=== PATIENT | female | born 1995 | race African-American/Black ===

== ENCOUNTER 2019-09-11 17:19 | Emergency (ER) | payer MEDICAID ==
[~2019-09-11] VITALS: Ht 172.7 cm; Wt 88.0 kg
[~2019-09-11 17:19] MED LIST: ARIP20TA5 PO; FLUT9.9S NAS; LAMO150T2 PO; LORA0.5T PO; MELA1TAB22 PO; MIRT30TA4 PO; RANI150C PO; SODI30SP NAS; ZOLP-413 PO
[2019-09-11 17:22] VITALS: BP 146/98
--- NOTE | 2019-09-11 20:03 | NUR ---
PT CALLED X 3 FROM 1850 TO 1999 WITH NO ANSWER
== END 2019-09-11 20:06 | disposition left against medical advice (07) ==
LOC: ED 20:00
DX: F15.10 Other stimulant abuse, uncomplicated (principal); Z53.21 Procedure and treatment not carried out due to patient leaving prior to being seen by health care provider

== ENCOUNTER 2019-10-04 16:21 | Emergency (ER) | payer MEDICAID ==
[~2019-10-04] VITALS: Ht 172.7 cm; Wt 90.6 kg
[2019-10-04] MEDS ORDERED: ACETAMINOPHEN 500 MG TABLET ONE (17:35)
[2019-10-04] MEDS ORDERED: TRAZADONE (17:43)
--- NOTE | 2019-10-04 17:43 | NUR ---
PT CAME IN CO OF HEADACHE FOR THE PAST 4 HOURS. CALL LIGHT WITHIN REACH
[2019-10-04 17:52] LABS: BASOPHILS # (AUTO) 0.03 x10^3/uL (0-0.1); BASOPHILS % (AUTO) 0 % (0-1); EOSINOPHILS # (AUTO) 0.01 x10^3/uL (0-0.4); EOSINOPHILS % (AUTO) 0 % (1-7); LYMPHOCYTES # (AUTO) 2.14 x10^3/uL (1-3.4); LYMPHOCYTES % (AUTO) 35 % (22-44); MD NO; MEAN CORPUSCULAR HEMOGLOBIN 28.6 pg (27.0-34.8); MEAN CORPUSCULAR HGB CONC 33.2 g/dL (32.4-35.8); MEAN CORPUSCULAR VOLUME 86.1 fL (80-100); MEAN PLATELET VOLUME 7.5 fL (7.4-10.4); MONOCYTES # (AUTO) 0.53 x10^3/uL (0.2-0.8); MONOCYTES % (AUTO) 9 % (2-9); NEUTROPHILS # (AUTO) 3.47 x10^3/uL (1.8-6.8); NEUTROPHILS % (AUTO) 56 % (42-75); PLATELET COUNT 304 x10^3/uL (130-400); RED BLOOD COUNT 4.59 x10^6/uL (3.82-5.3); RED CELL DISTRIBUTION WIDTH 14.3 % (9.6-15.2)
[2019-10-04] MEDS ORDERED: ACETAMINOPHEN 500 MG TABLET PO ONE (18:00)
[2019-10-04 18:04] LABS: ALANINE AMINOTRANSFERASE 21 U/L (12-78); ALBUMIN 4.1 g/dL (3.4-5.0); ANION GAP 6 mmol/L (5-15); CALCIUM 9.5 mg/dL (8.5-10.1); CHLORIDE 109 mmol/L (98-107); CREATININE 0.85 mg/dL (0.55-1.02)
[2019-10-04 18:06] LABS: ALKALINE PHOSPHATASE 96 U/L (45-117); BILIRUBIN,TOTAL 0.3 mg/dL (0.2-1.0); TOTAL PROTEIN 7.3 g/dL (6.4-8.2)
[2019-10-04 18:30] LABS: HCG UR SG 1.003 (1.003-1.030)
[2019-10-04 18:39] LABS: CULTURE INDICATED? YES; MICROSCOPIC AUTO
[2019-10-04 18:59] VITALS: BP 132/94
--- NOTE | 2019-10-04 18:59 | NUR ---
PT IS WATCHING TV. NO NEEDS AT THIS TIME
== END 2019-10-04 19:20 | disposition home or self-care (01) ==
LOC: ED 17:12
DX: J02.8 Acute pharyngitis due to other specified organisms (principal); R51 Headache; B97.89 Other viral agents as the cause of diseases classified elsewhere; I10 Essential (primary) hypertension
CPT/HCPCS: 36415; 71045; 80053; 81001; 81025; 83690; 85025; 87086; 99284

== ENCOUNTER 2019-10-15 13:42 | Emergency (ER) | payer MEDICAID ==
[~2019-10-15] VITALS: Ht 172.7 cm; Wt 86.2 kg
[~2019-10-15 13:42] MED LIST changes: +TRAZADONE
[2019-10-15 13:44] VITALS: BP 150/83
[2019-10-15] MEDS ORDERED: ACETAMINOPHEN 500 MG TABLET PO ONE (14:30)
[2019-10-15] MEDS ORDERED: ACETAMINOPHEN 500 MG TABLET ONE (14:44)
== END 2019-10-15 15:23 | disposition home or self-care (01) ==
LOC: ED 15:14
DX: G43.009 Migraine without aura, not intractable, without status migrainosus (principal); R11.0 Nausea; I10 Essential (primary) hypertension
CPT/HCPCS: 70450; 82962; 99284

== ENCOUNTER 2020-03-13 03:05 | Emergency (ER) | payer MEDICAID ==
[~2020-03-13] VITALS: Ht 172.7 cm; Wt 83.9 kg
[~2020-03-13 03:05] MED LIST changes: -LAMO150T2 PO; +LAMO150T4 PO
[2020-03-13 03:12] VITALS: BP 169/73
--- NOTE | 2020-03-13 03:32 | NUR ---
Pt c/o pain with urination and lower abd pain x2 days. UA collected and sent. Call light in reach. Pt denies further needs at this time.
[2020-03-13 03:48] LABS: HCG UR SG 1.024 (1.003-1.030)
--- NOTE | 2020-03-13 03:55 | NUR ---
Report to Ivone BLEDSOE.
[2020-03-13 04:01] LABS: MICROSCOPIC INDICATED
== END 2020-03-13 04:56 | disposition home or self-care (01) ==
LOC: ED 03:58
DX: N30.01 Acute cystitis with hematuria (principal); R30.0 Dysuria; R10.30 Lower abdominal pain, unspecified
CPT/HCPCS: 81001; 81025; 87077; 87086; 87186; 99283

== ENCOUNTER 2020-04-11 23:34 | Emergency (ER) | payer MEDICAID ==
[~2020-04-11] VITALS: Ht 172.7 cm; Wt 82.0 kg
[2020-04-11 23:48] VITALS: BP 163/85
--- NOTE | 2020-04-12 00:01 | NUR ---
Urine sample collected and walked to lab at this time
[2020-04-12] MEDS ORDERED: PHENAZOPYRIDINE 200 MG TABLET PO ONE (00:30)
[2020-04-12 00:36] LABS: HCG UR SG 1.028 (1.003-1.030)
[2020-04-12 00:37] LABS: MICROSCOPIC INDICATED
[2020-04-12] MEDS ORDERED: PHENAZOPYRIDINE 200 MG TABLET ONE (00:48)
[2020-04-12] MEDS ORDERED: FOSFOMYCIN 3 GM PACKET ONE (01:09)
[2020-04-12] MEDS ORDERED: FOSFOMYCIN 3 GM PACKET PO ONE (01:30)
== END 2020-04-12 01:22 | disposition home or self-care (01) ==
LOC: ED 04-12 01:18
DX: N30.01 Acute cystitis with hematuria (principal)
CPT/HCPCS: 81001; 81025; 87077; 87086; 87186; 99283

== ENCOUNTER 2020-05-02 17:20 | Emergency (ER) | payer MEDICAID ==
[~2020-05-02] VITALS: Ht 172.7 cm; Wt 81.0 kg
[2020-05-02] MEDS ORDERED: ACETAMINOPHEN 500 MG TABLET PO ONE (18:00)
[2020-05-02] MEDS ORDERED: LORazepam 1MG TABLET PO ONE (18:00)
[2020-05-02] MEDS ORDERED: ACETAMINOPHEN 500 MG TABLET ONE (18:14)
[2020-05-02] MEDS ORDERED: LORazepam 1MG TABLET ONE (18:14)
--- NOTE | 2020-05-02 18:27 | NUR ---
Pt presents to ED with c/o 5/10 headache and auditory hallucinations beginning 1 hour ago. Pt denies auditory hallucinations at this time. Pt denies SI or HI. Provided medications per EMAR. Pt appreciative. NADN. No other needs expressed at this time.
[2020-05-02 18:28] VITALS: BP 124/84
== END 2020-05-02 19:05 | disposition home or self-care (01) ==
LOC: ED 18:47
DX: R51 Headache (principal); Z76.0 Encounter for issue of repeat prescription; R44.0 Auditory hallucinations; R42 Dizziness and giddiness
CPT/HCPCS: 99281; 99283

== ENCOUNTER 2020-05-13 15:33 | Emergency (ER) | payer MEDICAID ==
[~2020-05-13] VITALS: Ht 172.7 cm; Wt 81.7 kg
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
[2020-05-13] MEDS ORDERED: PALIPERIDONE PALMITATE 234 MG/1.5 ML IM ONE (16:30)
--- NOTE | 2020-05-13 16:32 | NUR ---
APARNA WITH SENTHIL WITH PSYCH, NOT TO GIVE INVEGA AT THIS TIME. PATIENT WILL BE ON A HOLD PLACED BY SENTHIL
--- NOTE | 2020-05-13 16:49 | NUR ---
UA COLLECTED AND WALKED TO LAB
[2020-05-13 16:54] LABS: BASOPHILS # (AUTO) 0.05 x10^3/uL (0-0.1); BASOPHILS % (AUTO) 1 % (0-1); EOSINOPHILS # (AUTO) 0.02 x10^3/uL (0-0.4); EOSINOPHILS % (AUTO) 1 % (1-7); LYMPHOCYTES # (AUTO) 1.21 x10^3/uL (1-3.4); LYMPHOCYTES % (AUTO) 24 % (22-44); MD NO; MEAN CORPUSCULAR HEMOGLOBIN 28.2 pg (27.0-34.8); MEAN CORPUSCULAR HGB CONC 32.8 g/dL (32.4-35.8); MEAN PLATELET VOLUME 7.2 fL (7.4-10.4); MONOCYTES # (AUTO) 0.43 x10^3/uL (0.2-0.8); MONOCYTES % (AUTO) 9 % (2-9); NEUTROPHILS # (AUTO) 3.29 x10^3/uL (1.8-6.8); NEUTROPHILS % (AUTO) 66 % (42-75); PLATELET COUNT 332 x10^3/uL (130-400); RED BLOOD COUNT 4.49 x10^6/uL (3.82-5.3); RED CELL DISTRIBUTION WIDTH 14.1 % (9.6-15.2)
[2020-05-13 16:59] LABS: HCG UR SG 1.031 (1.003-1.030); MICROSCOPIC AUTO
[2020-05-13] MEDS ORDERED: LORazepam 1MG TABLET PO ONE (17:00)
[2020-05-13] MEDS ORDERED: LORazepam 1MG TABLET ONE (17:00)
[2020-05-13 17:06] LABS: ALBUMIN 3.7 g/dL (3.4-5.0); ANION GAP 7 mmol/L (5-15); CALCIUM 8.4 mg/dL (8.5-10.1); CHLORIDE 111 mmol/L (98-107)
--- NOTE | 2020-05-13 17:09 | NUR ---
PATIENT MEDICATED PER EMAR, TOLERATED WELL
[2020-05-13 17:10] LABS: ALANINE AMINOTRANSFERASE 17 U/L (12-78); ALKALINE PHOSPHATASE 96 U/L (45-117); BILIRUBIN,TOTAL 0.2 mg/dL (0.2-1.0); TOTAL PROTEIN 6.7 g/dL (6.4-8.2)
[2020-05-13 17:13] LABS: SALICYLATE LEVEL < 1.7 mg/dL (2.8-20.0)
[2020-05-13 17:32] LABS: AMPHETAMINE SCREEN, URINE Negative (Negative); BARBITURATE SCREEN, URINE Negative (Negative); BENZODIAZEPINE SCREEN, URINE Negative (Negative); CANNABINOID SCREEN, URINE Negative (Negative); COCAINE SCREEN, URINE Negative (Negative); METHADONE SCREEN, URINE Negative (Negative); OPIATE SCREEN, URINE Negative (Negative)
--- NOTE | 2020-05-13 17:58 | NUR ---
THROUGHPUT RN: LAZARO NOTIFIED OF PT.
--- NOTE | 2020-05-13 18:03 | NUR ---
ROBIN RN: [facility] DECLINED PT THEY ARE AT [facility].
--- NOTE | 2020-05-13 18:09 | NUR ---
COTTAGE SUPERVISOR: NICOLE LEPE [phone]
--- NOTE | 2020-05-13 18:43 | NUR ---
Psych faxed to [facility] at [phone].
--- NOTE | 2020-05-13 18:45 | NUR ---
REPORT GIVEN TO RAKAN LIPSCOMB. PLAN OF CARE DISCUSSED
--- NOTE | 2020-05-13 19:30 | NUR ---
PATIENT LYING IN BED, EVEN-UNLABORED RESPIRATIONS NOTED. NO ADDITIONAL NEEDS AT THIS TIME. SITTER WITHIN VIEW OF PATIENT. WILL CONTINUE TO MONITOR.
--- NOTE | 2020-05-13 20:27 | NUR ---
PATIENT GIVEN FOOD, AND HYDRATION PER REQUEST. PATIENT DENIES ANY FURTHER NEEDS AT THIS TIME. SITTER WITHIN VIEW OF PATIENT. WILL CONTINUE TO MONITOR.
[2020-05-13] MEDS ORDERED: QUETIAPINE 100MG TABLET PO SCH (21:00)
--- NOTE | 2020-05-13 21:30 | NUR ---
PATIENT RESTING IN BED, EVEN-UNLABORED RESPIRATIONS NOTED. NO ADDITIONAL NEEDS AT THIS TIME. SITTER WITHIN VIEW OF PATIENT. WILL CONTINUE TO MONITOR.
--- NOTE | 2020-05-13 22:30 | NUR ---
PATIENT RESTING IN BED, EVEN-UNLABORED RESPIRATIONS NOTED. NO ADDITIONAL NEEDS AT THIS TIME. SITTER WITHIN VIEW OF PATIENT. WILL CONTINUE TO MONITOR.
--- NOTE | 2020-05-13 23:55 | NUR ---
PATIENT MOVED TO HOSPITAL BED, TOLERATED WELL. PATIENT GIVEN SPRITE AND CRACKERS PER REQUEST OF PATIENT.
--- NOTE | 2020-05-14 00:58 | NUR ---
PATIENT UPDATED ON PLAN OF CARE. PATIENT CURRENTLY WATCHING TV. NO ADDITIONAL NEEDS AT THIS TIME. SITTER WITHIN VIEW OF PATIENT. WILL CONTINUE TO MONITOR.
--- NOTE | 2020-05-14 02:30 | NUR ---
PATIENT RESTING IN BED, EVEN-UNLABORED RESPIRATIONS NOTED. NO ADDITIONAL NEEDS AT THIS TIME. SITTER WITHIN VIEW OF PATIENT. WILL CONTINUE TO MONITOR.
--- NOTE | 2020-05-14 03:31 | NUR ---
PATIENT RESTING IN BED, EVEN-UNLABORED RESPIRATIONS NOTED. NO ADDITIONAL NEEDS AT THIS TIME. SITTER WITHIN VIEW OF PATIENT. WILL CONTINUE TO MONITOR.
--- NOTE | 2020-05-14 04:36 | NUR ---
PATIENT RESTING IN BED, EVEN-UNLABORED RESPIRATIONS NOTED. NO ADDITIONAL NEEDS AT THIS TIME. SITTER WITHIN VIEW OF PATIENT. WILL CONTINUE TO MONITOR.
--- NOTE | 2020-05-14 05:30 | NUR ---
PATIENT RESTING IN BED, EVEN-UNLABORED RESPIRATIONS NOTED. NO ADDITIONAL NEEDS AT THIS TIME. SITTER WITHIN VIEW OF PATIENT. WILL CONTINUE TO MONITOR.
--- NOTE | 2020-05-14 06:27 | NUR ---
VITAL SIGNS UPDATED, NO CHANGE IN PATIENT STATUS. UPDATED PATIENT ON PLAN OF CARE. SITTER WITHIN VIEW OF PATIENT. WILL CONTINUE TO MONITOR.
--- NOTE | 2020-05-14 06:51 | NUR ---
REPORT GIVEN TO RAKAN HARLEY
--- NOTE | 2020-05-14 07:08 | NUR ---
SBAR HAND-OFF REPORT RECEIVED FROM RAKAN LIPSCOMB. ASSUMING CARE OF PATIENT. PT IS SLEEPING AT THIS TIME. CHEST RISE AND FALL OBSERVED. PATIENT REMAINS UNDER CONSTANT SUPERVISION OF SITTER AND REMAINS SAFE.
[2020-05-14 08:53] VITALS: BP 121/72
--- NOTE | 2020-05-14 11:39 | NUR ---
TASK RN: REPORT GIVEN TO BELLA OLSEN RN. ALL QUESTIONS ANSWERED.
== END 2020-05-14 11:56 ==
LOC: ED 16:33
DX: F25.9 Schizoaffective disorder, unspecified (principal); F31.9 Bipolar disorder, unspecified; I10 Essential (primary) hypertension; G43.909 Migraine, unspecified, not intractable, without status migrainosus
CPT/HCPCS: 36415; 80053; 80307; 81001; 81025; 85025; 87086; 99285

== ENCOUNTER 2020-05-14 11:19 | Inpatient (IN) | payer MEDICAID ==
[~2020-05-14] VITALS: Ht 172.7 cm; Wt 80.8 kg
[2020-05-14] MEDS ORDERED: DOCUSATE 100 MG CAPSULE PO PRN (11:30)
[2020-05-14] MEDS ORDERED: POLYETHYLENE GLYCOL 17 GM PACKET PO PRN (11:30)
[2020-05-14] MEDS ORDERED: BISACODYL 10 MG SUPP PR PRN (11:30)
[2020-05-14] MEDS ORDERED: ONDANSETRON ODT 4 MG PO PRN (11:30)
[2020-05-14] MEDS ORDERED: LORazepam 1MG TABLET PO PRN (12:00)
[2020-05-14] MEDS ORDERED: PLEASE ENTER HEIGHT AND WEIGHT MC SCH (12:30)
[2020-05-14 12:35] VITALS: BP 125/70
[2020-05-14 14:06] LABS: CHOL/HDL RATIO 3.1; FREE T4 (FREE THYROXINE) 1.2 ng/dL (0.76-1.46); LDL/HDL RATIO 1.8 (0.5-3.0)
[2020-05-14] MEDS: QUETIAPINE 100MG TABLET PO SCH (19:33)
[2020-05-14 19:58] VITALS: BP 129/86
[2020-05-15 07:08] VITALS: BP 118/75
[2020-05-15] MEDS ORDERED: PALIPERIDONE PALMITATE 234 MG/1.5 ML IM ONE (13:45)
[2020-05-15 19:34] VITALS: BP 132/88
[2020-05-15] MEDS: ACETAMINOPHEN 325 MG TABLET PO PRN (20:03)
[2020-05-15] MEDS: QUETIAPINE 100MG TABLET PO SCH (20:04)
[2020-05-16 07:51] VITALS: BP 104/69
[2020-05-16] MEDS: ACETAMINOPHEN 325 MG TABLET PO PRN (10:49)
[2020-05-16 19:43] VITALS: BP 131/89
[2020-05-16] MEDS: QUETIAPINE 100MG TABLET PO SCH (21:14)
[2020-05-17 07:39] VITALS: BP 106/58
[2020-05-17 19:04] VITALS: BP 114/79
[2020-05-17] MEDS: QUETIAPINE 100MG TABLET PO SCH (20:05)
[2020-05-18 07:20] VITALS: BP 117/69
[2020-05-18] MEDS ORDERED: PALI234D IM (13:44)
[2020-05-18] MEDS ORDERED: QUET100T PO (13:44)
[2020-05-18 19:04] VITALS: BP 150/99
[2020-05-18] MEDS: QUETIAPINE 100MG TABLET PO SCH (20:07)
[2020-05-19 07:30] VITALS: BP 120/83
== END 2020-05-19 10:15 | disposition home or self-care (01) | DRG 750 ==
LOC: 3E 11:25
PROVIDERS: ADMIT Psychiatry & Neurology Psychosomatic Medicine; ATTEND Psychiatry & Neurology Psychosomatic Medicine
DX: F25.0 Schizoaffective disorder, bipolar type (principal); F39 Unspecified mood [affective] disorder; G47.00 Insomnia, unspecified; Q61.3 Polycystic kidney, unspecified; Z91.19 Patient's noncompliance with other medical treatment and regimen; Z79.899 Other long term (current) drug therapy
CPT/HCPCS: 36415; 71045; 80053; 80061; 80307; 81001; 81025; 84439; 84443; 84702; 85025; 87086; 93005; 99285; J2426

== ENCOUNTER 2020-07-11 22:17 | Emergency (ER) | payer MEDICAID ==
[~2020-07-11] VITALS: Ht 172.7 cm; Wt 88.0 kg
[~2020-07-11 22:17] MED LIST changes: +PALI234D IM; +QUET100T PO
[2020-07-11 22:53] LABS: BASOPHILS % (AUTO) 1 % (0-1); EOSINOPHILS % (AUTO) 0 % (1-7); LYMPHOCYTES % (AUTO) 34 % (22-44); MEAN CORPUSCULAR HEMOGLOBIN 27.4 pg (27.0-34.8); MEAN CORPUSCULAR HGB CONC 32.9 g/dL (32.4-35.8); MEAN PLATELET VOLUME 7.3 fL (7.4-10.4); MONOCYTES % (AUTO) 10 % (2-9); NEUTROPHILS % (AUTO) 55 % (42-75); PLATELET COUNT 326 x10^3/uL (130-400); RED BLOOD COUNT 4.82 x10^6/uL (3.82-5.3)
[2020-07-11 22:59] LABS: ALBUMIN 3.9 g/dL (3.4-5.0); ANION GAP 5 mmol/L (5-15); CALCIUM 9.2 mg/dL (8.5-10.1); CHLORIDE 109 mmol/L (98-107); CREATININE 0.84 mg/dL (0.55-1.02)
[2020-07-11 23:01] LABS: SALICYLATE LEVEL < 1.7 mg/dL (2.8-20.0)
[2020-07-11 23:02] LABS: MD NO
[2020-07-11 23:05] LABS: AMPHETAMINE SCREEN, URINE Negative (Negative); BARBITURATE SCREEN, URINE Negative (Negative); BENZODIAZEPINE SCREEN, URINE Negative (Negative); CANNABINOID SCREEN, URINE Negative (Negative); COCAINE SCREEN, URINE Negative (Negative); METHADONE SCREEN, URINE Negative (Negative); OPIATE SCREEN, URINE Negative (Negative)
[2020-07-12 00:03] VITALS: BP 132/74
== END 2020-07-12 00:05 | disposition home or self-care (01) ==
LOC: ED 23:20
DX: F25.9 Schizoaffective disorder, unspecified (principal); R07.89 Other chest pain; I10 Essential (primary) hypertension
CPT/HCPCS: 36415; 71045; 80048; 80307; 82040; 84703; 85025; 93005; 99285

== ENCOUNTER 2020-08-16 20:19 | Emergency (ER) | payer MEDICAID ==
[~2020-08-16] VITALS: Ht 172.7 cm; Wt 86.4 kg
[2020-08-16 20:25] VITALS: BP 123/91
[2020-08-16 20:59] LABS: BASOPHILS % (AUTO) 0 % (0-1); EOSINOPHILS % (AUTO) 0 % (1-7); LYMPHOCYTES % (AUTO) 32 % (22-44); MEAN CORPUSCULAR HEMOGLOBIN 28.5 pg (27.0-34.8); MEAN CORPUSCULAR HGB CONC 34.2 g/dL (32.4-35.8); MEAN PLATELET VOLUME 7.1 fL (7.4-10.4); MONOCYTES % (AUTO) 9 % (2-9); NEUTROPHILS % (AUTO) 58 % (42-75); PLATELET COUNT 343 x10^3/uL (130-400); RED BLOOD COUNT 4.76 x10^6/uL (3.82-5.3); RED CELL DISTRIBUTION WIDTH 14.3 % (9.6-15.2)
[2020-08-16 21:01] LABS: MD NO
[2020-08-16 21:07] LABS: ALBUMIN 3.9 g/dL (3.4-5.0); ANION GAP 6 mmol/L (5-15); CALCIUM 8.7 mg/dL (8.5-10.1); CHLORIDE 110 mmol/L (98-107); CREATININE 0.87 mg/dL (0.55-1.02)
--- NOTE | 2020-08-16 21:32 | NUR ---
PT LEFT FROM LOBBY BECAUSE SHE DIDNT WANT TO WAIT.
--- NOTE | 2020-08-16 21:36 | NUR ---
PT REFUSED TO SIGN AMA PAPERS
== END 2020-08-16 21:38 | disposition left against medical advice (07) ==
LOC: ED 20:40
DX: R07.9 Chest pain, unspecified (principal); R06.02 Shortness of breath; R00.0 Tachycardia, unspecified; R94.31 Abnormal electrocardiogram [ECG] [EKG]
CPT/HCPCS: 36415; 71045; 80048; 82040; 84703; 85025; 93005; 99285

== ENCOUNTER 2020-10-01 22:24 | Emergency (ER) | payer MEDICAID ==
[~2020-10-01] VITALS: Ht 172.7 cm; Wt 88.7 kg
[2020-10-01] MEDS ORDERED: LORazepam 2 MG/ML, 1ML IVPush ONE (23:00)
[2020-10-01] MEDS ORDERED: SODIUM CHLORIDE FLUSH 10ML SYR IVF ONE (23:00)
[2020-10-01] MEDS ORDERED: BENZTROPINE 1 MG TABLET PO ONE (23:00)
[2020-10-01] MEDS ORDERED: SODIUM CHLORIDE 0.9% 1,000ML IVBOLUS ONE (23:00)
[2020-10-01] MEDS ORDERED: BENZTROPINE 1 MG TABLET ONE (23:01)
[2020-10-01] MEDS ORDERED: LORazepam 2 MG/ML, 1ML ONE (23:02)
[2020-10-01 23:23] LABS: ALANINE AMINOTRANSFERASE 23 U/L (12-78); ALBUMIN 3.6 g/dL (3.4-5.0); ANION GAP 6 mmol/L (5-15); CALCIUM 8.9 mg/dL (8.5-10.1); CHLORIDE 110 mmol/L (98-107); CREATININE 0.94 mg/dL (0.55-1.02)
[2020-10-01 23:25] LABS: BASOPHILS % (AUTO) 0 % (0-1); EOSINOPHILS % (AUTO) 0 % (1-7); LYMPHOCYTES % (AUTO) 33 % (22-44); MEAN CORPUSCULAR HEMOGLOBIN 27.7 pg (27.0-34.8); MEAN CORPUSCULAR HGB CONC 33.4 g/dL (32.4-35.8); MONOCYTES % (AUTO) 8 % (2-9); NEUTROPHILS % (AUTO) 58 % (42-75); PLATELET COUNT 364 x10^3/uL (130-400); RED BLOOD COUNT 4.72 x10^6/uL (3.82-5.3); RED CELL DISTRIBUTION WIDTH 14.3 % (9.6-15.2)
[2020-10-01 23:29] LABS: MD NO
[2020-10-01 23:33] LABS: ALKALINE PHOSPHATASE 86 U/L (45-117); BILIRUBIN,TOTAL 0.2 mg/dL (0.2-1.0); FREE T4 (FREE THYROXINE) 1.21 ng/dL (0.76-1.46); TOTAL PROTEIN 6.8 g/dL (6.4-8.2); TROPONIN I < 0.015 ng/mL (0.000-0.045)
--- NOTE | 2020-10-01 23:47 | NUR ---
Patient noted to be resting comfortable after being medicated per MAR. Patient ambulated to and from the restroom with a steady gait. Offers no compalints at this time
[2020-10-02 00:21] LABS: AMPHETAMINE SCREEN, URINE Negative (Negative); BARBITURATE SCREEN, URINE Negative (Negative); BENZODIAZEPINE SCREEN, URINE Negative (Negative); CANNABINOID SCREEN, URINE Negative (Negative); COCAINE SCREEN, URINE Negative (Negative); METHADONE SCREEN, URINE Negative (Negative); OPIATE SCREEN, URINE Negative (Negative)
[2020-10-02 00:46] VITALS: BP 138/48
== END 2020-10-02 00:54 | disposition home or self-care (01) ==
LOC: ED 10-02 00:02
DX: R06.00 Dyspnea, unspecified (principal); R00.0 Tachycardia, unspecified; G43.909 Migraine, unspecified, not intractable, without status migrainosus; I10 Essential (primary) hypertension
CPT/HCPCS: 36415; 71045; 80053; 80307; 84439; 84443; 84484; 84703; 85025; 85379; 93005; 96361; 96374; 99285; J2060; J7030

== ENCOUNTER 2020-10-10 21:24 | Emergency (ER) | payer MEDICAID ==
[~2020-10-10] VITALS: Ht 172.7 cm; Wt 86.2 kg
--- NOTE | 2020-10-10 21:33 | NUR ---
Instruct on clean catch urine given.
--- NOTE | 2020-10-10 21:45 | NUR ---
PATIENT AMBULATED FROM TRIAGE TO ROOM UNASSISTED, URINE TO LAB. CALL MCKAY WITHIN REACH, VSS, NAD, WILL CONTINUE TO MONITOR.
[2020-10-10 21:54] LABS: HCG UR SG 1.024 (1.003-1.030)
[2020-10-10 21:55] LABS: MICROSCOPIC AUTO
[2020-10-10 22:41] VITALS: BP 128/64
== END 2020-10-10 22:43 | disposition home or self-care (01) ==
LOC: ED 22:19
DX: N30.00 Acute cystitis without hematuria (principal); R30.0 Dysuria; R11.0 Nausea; I10 Essential (primary) hypertension; R10.30 Lower abdominal pain, unspecified
CPT/HCPCS: 81001; 81025; 87086; 99283

== ENCOUNTER 2020-10-15 03:32 | Emergency (ER) | payer MEDICAID ==
[~2020-10-15] VITALS: Ht 172.7 cm; Wt 81.8 kg
[2020-10-15 03:33] VITALS: BP 135/88
--- NOTE | 2020-10-15 03:39 | NUR ---
pt ambulatory to [facility], resting, placed on monitors, awaiting erp eval.
== END 2020-10-15 04:08 | disposition home or self-care (01) ==
LOC: ED 03:48
DX: F20.0 Paranoid schizophrenia (principal); I10 Essential (primary) hypertension
CPT/HCPCS: 99283

== ENCOUNTER 2020-10-21 21:09 | Emergency (ER) | payer MEDICAID ==
[~2020-10-21] VITALS: Ht 172.7 cm; Wt 84.6 kg
[2020-10-21] MEDS ORDERED: SODIUM CHLORIDE FLUSH 10ML SYR IVF ONE (21:30)
[2020-10-21] MEDS ORDERED: SODIUM CHLORIDE 0.9% 1,000ML IVBOLUS ONE (21:30)
[2020-10-21] MEDS ORDERED: LORazepam 2 MG/ML, 1ML IVPush ONE (21:30)
[2020-10-21] MEDS ORDERED: LORazepam 2 MG/ML, 1ML ONE (21:32)
[2020-10-21 21:56] LABS: ALANINE AMINOTRANSFERASE 32 U/L (12-78); ALBUMIN 3.9 g/dL (3.4-5.0); ANION GAP 6 mmol/L (5-15); CHLORIDE 111 mmol/L (98-107)
[2020-10-21 22:04] LABS: BASOPHILS % (AUTO) 0 % (0-1); EOSINOPHILS % (AUTO) 0 % (1-7); LYMPHOCYTES % (AUTO) 39 % (22-44); MD NO; MEAN CORPUSCULAR HEMOGLOBIN 28.1 pg (27.0-34.8); MEAN PLATELET VOLUME 7.4 fL (7.4-10.4); MONOCYTES % (AUTO) 8 % (2-9); NEUTROPHILS % (AUTO) 52 % (42-75); PLATELET COUNT 349 x10^3/uL (130-400); RED CELL DISTRIBUTION WIDTH 14.2 % (9.6-15.2)
[2020-10-21 22:21] LABS: SALICYLATE LEVEL < 1.7 mg/dL (2.8-20.0)
[2020-10-21 22:27] LABS: ALKALINE PHOSPHATASE 92 U/L (45-117); BILIRUBIN,TOTAL 0.2 mg/dL (0.2-1.0); CREATININE 0.87 mg/dL (0.55-1.02); T4 (THYROXINE) 10.8 mcg/dL (4.8-13.9); TOTAL PROTEIN 7.4 g/dL (6.4-8.2)
[2020-10-21 22:37] LABS: MICROSCOPIC AUTO
[2020-10-21 22:46] LABS: AMPHETAMINE SCREEN, URINE Negative (Negative); BARBITURATE SCREEN, URINE Negative (Negative); BENZODIAZEPINE SCREEN, URINE Negative (Negative); CANNABINOID SCREEN, URINE Negative (Negative); COCAINE SCREEN, URINE Negative (Negative); METHADONE SCREEN, URINE Negative (Negative); OPIATE SCREEN, URINE Negative (Negative)
[2020-10-22 00:03] VITALS: BP 139/87
== END 2020-10-22 00:06 | disposition home or self-care (01) ==
LOC: ED 22:31
DX: R06.00 Dyspnea, unspecified (principal); F41.1 Generalized anxiety disorder; N30.00 Acute cystitis without hematuria; R06.4 Hyperventilation; R00.0 Tachycardia, unspecified; I10 Essential (primary) hypertension
CPT/HCPCS: 36415; 71045; 80053; 80299; 80307; 80320; 80329; 81001; 83735; 84436; 84443; 84703; 85025; 85379; 87086; 93005; 96374; 99285; J2060; J7030; 87106; G0480

== ENCOUNTER 2020-11-14 20:55 | Emergency (ER) | payer MEDICAID ==
[~2020-11-14] VITALS: Ht 172.7 cm; Wt 87.0 kg
--- NOTE | 2020-11-14 21:22 | NUR ---
pt reports coming into ed tonight for covid like symptoms, states she has sob, chills and fever. pt resting on gurney, nad, appears comfortable. placed on spo2/bp monitoring at this time. bed in lowest, rails engaged, call light placed on lap. wctm.
[2020-11-14 21:57] VITALS: BP 138/98
--- NOTE | 2020-11-14 22:05 | NUR ---
Patient given discharge instructions and they have confirmed that they understand the instructions. Patient ambulatory with steady gait. nad, denies additional questions or needs, no personal belongings left in room after dc.
== END 2020-11-14 22:06 | disposition home or self-care (01) ==
LOC: ED 21:19
DX: B34.9 Viral infection, unspecified (principal); Z20.822 Contact with and (suspected) exposure to COVID-19; R07.9 Chest pain, unspecified; R19.7 Diarrhea, unspecified; I10 Essential (primary) hypertension; G43.909 Migraine, unspecified, not intractable, without status migrainosus
CPT/HCPCS: 87635; 93005; 99284

== ENCOUNTER 2020-11-23 03:29 | Emergency (ER) | payer MEDICAID ==
[~2020-11-23] VITALS: Ht 177.8 cm; Wt 80.0 kg
[2020-11-23 03:33] VITALS: BP 132/78
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
== END 2020-11-23 04:22 | disposition home or self-care (01) ==
LOC: ED 04:07
DX: T74.21XA Adult sexual abuse, confirmed, initial encounter (principal); Y04.8XXA Assault by other bodily force, initial encounter; Y93.89 Activity, other specified; Y92.89 Other specified places as the place of occurrence of the external cause; Y99.8 Other external cause status; Y07.9 Unspecified perpetrator of maltreatment and neglect
CPT/HCPCS: 99283

== ENCOUNTER 2020-12-02 20:11 | Emergency (ER) | payer MEDICAID ==
[~2020-12-02] VITALS: Ht 175.3 cm; Wt 85.0 kg
[2020-12-02] MEDS ORDERED: IBUPROFEN 600 MG TABLET ONE (21:26)
[2020-12-02] MEDS ORDERED: LORazepam 1MG TABLET ONE (21:27)
[2020-12-02] MEDS ORDERED: LORazepam 1MG TABLET PO ONE (21:30)
[2020-12-02] MEDS ORDERED: IBUPROFEN 600 MG TABLET PO ONE (21:30)
[2020-12-02 21:54] VITALS: BP 136/87
== END 2020-12-02 21:56 | disposition home or self-care (01) ==
LOC: ED 21:22
DX: S16.1XXA Strain of muscle, fascia and tendon at neck level, initial encounter (principal); R51.9 Headache, unspecified; R00.0 Tachycardia, unspecified; X58.XXXA Exposure to other specified factors, initial encounter; Y93.89 Activity, other specified; Y92.89 Other specified places as the place of occurrence of the external cause; Y99.8 Other external cause status
CPT/HCPCS: 99283

== ENCOUNTER 2021-01-15 06:29 | Emergency (ER) | payer MEDICAID ==
[~2021-01-15] VITALS: Ht 172.7 cm; Wt 80.0 kg
[2021-01-15 06:32] VITALS: BP 131/86
--- NOTE | 2021-01-15 06:35 | NUR ---
pt bib ems from home for low abdominal pain and burning on urination, states it started this morning. pt ambulated to and from restroom with a smooth and steady gait, ua obtained. pt placed on monitoring and found to be slightly tachy. pt refusing to remain on monitoring or sit on gurney, states "it hurts to sit". pt nad, anox4, wctm. provided warm blankets for comfort.
--- NOTE | 2021-01-15 06:46 | NUR ---
REPORT FROM RAKAN HANDY FOR TRANSFER OF PATIENT CARE.
--- NOTE | 2021-01-15 06:58 | NUR ---
report to Analia BLEDSOE, pt care transferred at this time.
[2021-01-15 07:09] LABS: MICROSCOPIC INDICATED
[2021-01-15 07:30] LABS: HCG UR SG 1.025 (1.003-1.030)
--- NOTE | 2021-01-15 07:59 | NUR ---
Patient given discharge instructions and prescription and they have confirmed that they understand the instructions. Patient stable and ambulatory with steady gait from ED to private vehicle.
== END 2021-01-15 08:00 | disposition home or self-care (01) ==
LOC: ED 07:08
DX: N30.00 Acute cystitis without hematuria (principal)
CPT/HCPCS: 81001; 81025; 87086; 99283

== ENCOUNTER 2021-01-22 08:23 | Emergency (ER) | payer MEDICAID ==
[~2021-01-22] VITALS: Ht 172.7 cm; Wt 87.0 kg
[2021-01-22] MEDS ORDERED: ONDANSETRON ODT 4 MG PO ONE (09:00)
--- NOTE | 2021-01-22 09:04 | NUR ---
REPORT TO KORIN BLEDSOE.
[2021-01-22] MEDS ORDERED: ONDANSETRON ODT 4 MG ONE (09:05)
[2021-01-22 09:09] VITALS: BP 125/72
--- NOTE | 2021-01-22 09:09 | NUR ---
RECEIVED REPORT FROM RAKAN ARGUETA. PT RESTING ON [facility]. VSS. MEDICATED PER NOV.
[2021-01-22 09:17] LABS: BASOPHILS % (AUTO) 0 % (0-1); EOSINOPHILS % (AUTO) 1 % (1-7); LYMPHOCYTES % (AUTO) 13 % (22-44); MEAN CORPUSCULAR HEMOGLOBIN 28.1 pg (27.0-34.8); MEAN CORPUSCULAR HGB CONC 33.3 g/dL (32.4-35.8); MEAN PLATELET VOLUME 7.1 fL (7.4-10.4); MONOCYTES % (AUTO) 5 % (2-9); NEUTROPHILS % (AUTO) 80 % (42-75); PLATELET COUNT 354 x10^3/uL (130-400); RED BLOOD COUNT 4.71 x10^6/uL (3.82-5.3)
[2021-01-22 09:25] LABS: MD NO
[2021-01-22 09:30] LABS: ALBUMIN 4.2 g/dL (3.4-5.0); ANION GAP 10 mmol/L (5-15); CHLORIDE 107 mmol/L (98-107)
[2021-01-22 09:45] LABS: MICROSCOPIC INDICATED
== END 2021-01-22 10:27 | disposition home or self-care (01) ==
LOC: ED 09:35
DX: R53.81 Other malaise (principal); R42 Dizziness and giddiness
CPT/HCPCS: 36415; 80048; 81001; 82040; 84702; 85025; 99283; Q0162